=== PATIENT | female | born 1965 | race Caucasian/White ===

== ENCOUNTER 2020-02-08 05:50 | Emergency (ER) | payer OTHER ==
[~2020-02-08] VITALS: Ht 177.8 cm; Wt 85.9 kg
[2020-02-08] MEDS ORDERED: KETOROLAC 30 MG/1 ML ONE (06:49)
[2020-02-08] MEDS ORDERED: ONDANSETRON 2MG/ML, 2ML ONE (06:49)
[2020-02-08] MEDS ORDERED: KETOROLAC 30 MG/1 ML IVPush ONE (07:00)
[2020-02-08] MEDS ORDERED: ONDANSETRON 2MG/ML, 2ML IVPush ONE (07:00)
[2020-02-08] MEDS ORDERED: SODIUM CHLORIDE FLUSH 10ML SYR IVF ONE (07:00)
[2020-02-08 07:01] LABS: BASOPHILS # (AUTO) 0.02 x10^3/uL (0-0.1); BASOPHILS % (AUTO) 0 % (0-1); EOSINOPHILS # (AUTO) 0.01 x10^3/uL (0-0.4); EOSINOPHILS % (AUTO) 0 % (1-7); LYMPHOCYTES # (AUTO) 0.85 x10^3/uL (1-3.4); LYMPHOCYTES % (AUTO) 20 % (22-44); MD NO; MEAN CORPUSCULAR HEMOGLOBIN 29.9 pg (27.0-34.8); MEAN CORPUSCULAR HGB CONC 33.1 g/dL (32.4-35.8); MEAN CORPUSCULAR VOLUME 90.3 fL (80-100); MEAN PLATELET VOLUME 8.1 fL (7.4-10.4); MONOCYTES % (AUTO) 10 % (2-9); NEUTROPHILS % (AUTO) 70 % (42-75); PLATELET COUNT 207 x10^3/uL (130-400); RED BLOOD COUNT 4.78 x10^6/uL (3.82-5.3); RED CELL DISTRIBUTION WIDTH 13.5 % (9.6-15.2)
[2020-02-08 07:07] LABS: ANION GAP 7 mmol/L (5-15); CALCIUM 8.9 mg/dL (8.5-10.1); CHLORIDE 108 mmol/L (98-107); CREATININE 0.69 mg/dL (0.55-1.02)
[2020-02-08 07:08] LABS: ALANINE AMINOTRANSFERASE 23 U/L (12-78)
[2020-02-08 07:11] LABS: ALKALINE PHOSPHATASE 59 U/L (45-117); BILIRUBIN,TOTAL 0.3 mg/dL (0.2-1.0); TOTAL PROTEIN 7.2 g/dL (6.4-8.2); TROPONIN I < 0.015 ng/mL (0.000-0.045)
--- NOTE | 2020-02-08 07:13 | NUR ---
REPORT RECEIVED FROM ROSALIO DEJESUS.
--- NOTE | 2020-02-08 07:51 | NUR ---
TASK RN NOTE: PT RESTING SITTING UP IN BED WITH EYES CLOSED. NAD NOTED AT THIS TIME. CHART UP FOR RECHECK.
--- NOTE | 2020-02-08 08:39 | NUR ---
pt resting in [facility]. pt's aox4. resps even and unlabored. all monitors in place. call light within reach.
--- NOTE | 2020-02-08 09:37 | NUR ---
pt resting in [facility]. pt's aox4. resps even and unlabored. all monitors in place. call light within reach.
[2020-02-08 09:45] LABS: TROPONIN I < 0.015 ng/mL (0.000-0.045)
--- NOTE | 2020-02-08 10:21 | NUR ---
pt resting in [facility]. pt's aox4. resps even and unlabored. pt denies any needs or concerns at this time.
[2020-02-08] MEDS ORDERED: HYDROcodone/APAP 5/325 TABLET ONE (10:42)
[2020-02-08 10:46] VITALS: BP 99/60
--- NOTE | 2020-02-08 10:50 | NUR ---
pt medicated per emar. pt tolerated well. pt's aox4. resps even and unlabored.
[2020-02-08] MEDS ORDERED: HYDROcodone/APAP 5/325 TABLET PO ONE (11:00)
--- NOTE | 2020-02-08 11:09 | NUR ---
Patient given discharge instructions and they have confirmed that they understand the instructions. Patient ambulatory with steady gait.
== END 2020-02-08 11:10 | disposition home or self-care (01) ==
LOC: ED 07:01
DX: R07.89 Other chest pain (principal); R06.02 Shortness of breath; R11.0 Nausea; Z88.8 Allergy status to other drugs, medicaments and biological substances
CPT/HCPCS: 36415; 71045; 80053; 83880; 84484; 85025; 85379; 87635; 93005; 96374; 96375; 99285; J1885; J2405